=== PATIENT | female | born 1995 | race Caucasian/White ===

== ENCOUNTER 2017-12-13 13:57 | Emergency (ER) | payer MEDICAID ==
[~2017-12-13] VITALS: Ht 160 cm; Wt 70.3 kg
[2017-12-13 14:12] VITALS: BP 116/77
[2017-12-13 15:30] VITALS: BP 116/77
== END 2017-12-13 15:30 | disposition home or self-care (01) ==
LOC: MED 13:57
DX: H61.21 Impacted cerumen, right ear (principal)
CPT/HCPCS: 99283

== ENCOUNTER 2018-02-05 17:00 | Emergency (ER) | payer MEDICAID ==
[~2018-02-05] VITALS: Ht 160 cm; Wt 61.2 kg
--- NOTE | 2018-02-05 17:16 | NUR ---
PT AMBULATED TO ER BED 02
[2018-02-05 17:17] VITALS: BP 135/75
--- NOTE | 2018-02-05 17:19 | NUR ---
PT C/O WEAKNESS AND DIZZINESS X 2 WEEKS. NO OTHER COMPLAINTS. DENIES CP/SOB COUGH OR FEVER. HX---ANEMIA MEDS---NONE
[2018-02-05 18:11] LABS: BASOPHILS % (AUTO) 0.6 % (0.0-2.0); EOSINOPHILS # (AUTO) 0.1 K/uL (0-0.4); EOSINOPHILS % (AUTO) 1.4 % (0.0-4.0); LYMPHOCYTES # (AUTO) 1.3 K/uL (2.5-16.5); LYMPHOCYTES % (AUTO) 22.6 % (20.5-51.1); MEAN CORPUSCULAR HEMOGLOBIN 29 pg (27-31); MEAN CORPUSCULAR HGB CONC 32 g/dL (33-37); MEAN CORPUSCULAR VOLUME 89.1 fL (80-94); MONOCYTES # (AUTO) 0.7 K/uL (0.8-1.0); MONOCYTES % (AUTO) 11.2 % (1.7-9.3); NEUTROPHILS # (AUTO) 3.8 K/uL (1.8-7.7); NEUTROPHILS % (AUTO) 64.2 % (42.2-75.2); PLATELET COUNT (AUTO) 176 K/uL (140-450); RED BLOOD CELL COUNT(AUTO) 4.48 MIL/uL (4.20-5.40); RED CELL DISTRIBUTION WIDTH 14.5 % (11.6-13.7); WHITE BLOOD COUNT (AUTO) 5.9 K/uL (4.5-11.0)
[2018-02-05 18:18] LABS: APPEARANCE,URINE CLEAR (CLEAR); BILIRUBIN,URINE NEGATIVE (NEGATIVE); BLOOD, URINE LARGE (NEGATIVE); COLOR,URINE YELLOW (YELLOW); LEUKOCYTE ESTERASE ,URINE NEGATIVE (NEGATIVE); NITRITE, URINE NEGATIVE (NEGATIVE); UGLUCOSE NEGATIVE (NEGATIVE)
[2018-02-05 18:46] LABS: ANION GAP 9.6 (8-16); CARBON DIOXIDE 31.3 mmol/L (21-32); CREATININE 0.7 mg/dL (0.6-1.3); POTASSIUM 3.9 mmol/L (3.5-5.1)
[2018-02-05 18:57] LABS: BARBITURATE, URINE NEG. ng/ml (NEG <=200); BENZODIAZEPINE, URINE NEG. ng/mL (NEG <=200); CANNABINOID, URINE NEG. ng/mL (NEG <=50); COCAINE, URINE NEG. ng/mL (NEG <=300); OPIATE, URINE NEG. ng/mL (NEG <=2000); PHENCYCLIDINE SCREEN,URINE NEG. ng/mL (NEG <=25)
[2018-02-05 19:00] LABS: ALBUMIN 3.8 g/dL (3.4-5.0); FREE T4 (FREE THYROXINE) 0.87 ng/dL (0.76-1.46); TOTAL BILIRUBIN 0.4 mg/dL (0.0-1.0)
[2018-02-05 19:12] VITALS: BP 128/78
--- NOTE | 2018-02-05 19:13 | NUR ---
Patient discharged with v/s stable. Written and verbal after care instructions given and explained. Patient alert, oriented and verbalized understanding of instructions. Ambulatory with steady gait. All questions addressed prior to discharge. ID band removed. Patient advised to follow up with PMD. Opportunity to ask questions provided and answered.
== END 2018-02-05 19:13 | disposition home or self-care (01) ==
LOC: MED 17:00
DX: R53.1 Weakness (principal); R42 Dizziness and giddiness; R55 Syncope and collapse
CPT/HCPCS: 36415; 80053; 80305; 81003; 81025; 84439; 84443; 85025; 93005; 99283